=== PATIENT | female | born 1965 | race Caucasian/White ===

== ENCOUNTER 2017-06-25 11:17 | Inpatient (IN) | payer BC, OTHER ==
[~2017-06-25] VITALS: Ht 170.2 cm; Wt 108.9 kg
[2017-06-25 11:25] VITALS: BP_SYST 148
[2017-06-25] MEDS ORDERED: MECLIZINE HCL 25 MG TABLET (ANITVERT) PO ONE (11:45)
[2017-06-25] MEDS ORDERED: METOCLOPRAMIDE HCL 10 MG/2 ML VIAL IVP ONE (11:45)
[2017-06-25 11:52] LABS: BASOPHILS # (AUTO) 0.1 K/uL (0.0-0.2); BASOPHILS % (AUTO) 0.5 % (0.0-2.0); EOSINOPHILS # (AUTO) 0.1 K/uL (0.0-0.4); EOSINOPHILS % (AUTO) 0.8 % (0.0-4.0); HEMATOCRIT 38.5 % (36-48); HEMOGLOBIN 12.4 g/dL (12.0-16.0); LYMPHOCYTES # (AUTO) 1.6 K/uL (1.0-5.5); LYMPHOCYTES % (AUTO) 13.7 % (20.5-51.5); MEAN CORPUSCULAR HEMOGLOBIN 27 pg (27-31); MEAN CORPUSCULAR HGB CONC 32 % (32-36); MEAN CORPUSCULAR VOLUME 82 fL (79.0-98.0); MONOCYTES # (AUTO) 0.6 K/uL (0.0-1.0); MONOCYTES % (AUTO) 5.3 % (1.7-9.3); NEUTROPHILS # (AUTO) 9.6 K/uL (1.8-7.7); NEUTROPHILS % (AUTO) 79.7 % (40.0-70.0); PLATELET COUNT (AUTO) 305 K/uL (130-430); RED CELL DISTRIBUTION WIDTH 14.3 % (9.0-15.0); WHITE BLOOD COUNT (AUTO) 11.9 K/uL (4.8-10.8)
[2017-06-25 11:57] LABS: CALCIUM 9.2 mg/dL (8.4-11.0); CREATININE 0.84 mg/dL (0.55-1.30); POTASSIUM 3.8 mmol/L (3.5-5.1)
[2017-06-25 11:59] LABS: PROTHROMBIN TIME 10.1 SECS (9.5-12.5)
[2017-06-25 12:01] LABS: ALBUMIN 3.4 g/dL (3.4-4.8); TOTAL BILIRUBIN 0.8 mg/dL (0.0-1.0)
[2017-06-25] MEDS ORDERED: HYDR12.585 PO (13:49)
[2017-06-25] MEDS ORDERED: INSU10VI4 SUBCUT (13:49)
[2017-06-25] MEDS ORDERED: LOVA20TA2 PO (13:49)
[2017-06-25 15:17] VITALS: BP_SYST 138
[2017-06-25] MEDS ORDERED: POTASSIUM CHLORIDE 20 MEQ TAB.PRT.SR PO PRN (19:00)
[2017-06-25] MEDS ORDERED: MUPIROCIN 2% TOPICAL OINTMENT 22 GM NS PRN (19:00)
[2017-06-25] MEDS ORDERED: DOCUSATE SODIUM 100 MG CAPSULE PO PRN (19:00)
[2017-06-25] MEDS ORDERED: ONDANSETRON HCL 4 MG/2 ML VIAL IVP PRN (19:00)
[2017-06-25] MEDS ORDERED: ZOLPIDEM TARTRATE 5 MG TABLET PO PRN (19:00)
[2017-06-25] MEDS ORDERED: MAGNESIUM SULFATE 50 ML IV PRN (19:00)
[2017-06-25] MEDS ORDERED: LORazepam 2 MG/ML VIAL IVP PRN (19:00)
[2017-06-25 20:10] VITALS: BP_SYST 116
[2017-06-25] MEDS: HEPARIN SODIUM,PORCINE 5000 UNITS/ML VIAL SUBCUT SCH (20:56)
[2017-06-25] MEDS ORDERED: SIMVASTATIN 10 MG TABLET PO SCH (21:00)
[2017-06-25] MEDS: INSULIN REGULAR, HUMAN 100 UNITS/ML, 10 ML VIAL (novoLIN R) SUBCUT PRN (21:01)
[2017-06-26 00:06] VITALS: BP_SYST 124
[2017-06-26 07:12] LABS: BASOPHILS # (AUTO) 0.1 K/uL (0.0-0.2); BASOPHILS % (AUTO) 0.7 % (0.0-2.0); EOSINOPHILS # (AUTO) 0.2 K/uL (0.0-0.4); EOSINOPHILS % (AUTO) 2.3 % (0.0-4.0); HEMATOCRIT 34.3 % (36-48); HEMOGLOBIN 11.5 g/dL (12.0-16.0); LYMPHOCYTES # (AUTO) 2.5 K/uL (1.0-5.5); LYMPHOCYTES % (AUTO) 31.4 % (20.5-51.5); MEAN CORPUSCULAR HEMOGLOBIN 27 pg (27-31); MEAN CORPUSCULAR HGB CONC 34 % (32-36); MEAN CORPUSCULAR VOLUME 81 fL (79.0-98.0); MONOCYTES # (AUTO) 0.5 K/uL (0.0-1.0); MONOCYTES % (AUTO) 6.6 % (1.7-9.3); NEUTROPHILS # (AUTO) 4.6 K/uL (1.8-7.7); PLATELET COUNT (AUTO) 261 K/uL (130-430); RED BLOOD CELL COUNT(AUTO) 4.22 MIL/uL (4.2-6.2); WHITE BLOOD COUNT (AUTO) 7.9 K/uL (4.8-10.8)
[2017-06-26] MEDS ORDERED: MECLIZINE HCL 25 MG TABLET (ANITVERT) PO PRN (07:15)
[2017-06-26 07:29] LABS: CALCIUM 8.8 mg/dL (8.4-11.0); CREATININE 0.65 mg/dL (0.55-1.30); POTASSIUM 3.4 mmol/L (3.5-5.1)
[2017-06-26 08:00] VITALS: BP_SYST 107
[2017-06-26] MEDS: HEPARIN SODIUM,PORCINE 5000 UNITS/ML VIAL SUBCUT SCH (08:34)
[2017-06-26] MEDS ORDERED: PANTOPRAZOLE SODIUM 40 MG TAB PO SCH (09:00)
[2017-06-26] MEDS: INSULIN REGULAR, HUMAN 100 UNITS/ML, 10 ML VIAL (novoLIN R) SUBCUT PRN (11:17)
[2017-06-26 12:00] VITALS: BP_SYST 98
[2017-06-26] MEDS ORDERED: IBUPROFEN 400 MG TABLET PO PRN (12:00)
[2017-06-26 14:50] VITALS: BP_SYST 106
[2017-06-26 16:00] VITALS: BP_SYST 106
[2017-06-26] MEDS ORDERED: LOVASTATIN 20 MG TABLET PO SCH (18:00)
== END 2017-06-26 16:55 | disposition home or self-care (01) | DRG 392 ==
LOC: SED 11:17 → STU 14:58
PROVIDERS: ADMIT Internal Medicine; ATTEND General Practice
DX: K21.9 Gastro-esophageal reflux disease without esophagitis (principal); E11.43 Type 2 diabetes mellitus with diabetic autonomic (poly)neuropathy; E87.1 Hypo-osmolality and hyponatremia; E11.65 Type 2 diabetes mellitus with hyperglycemia; E66.9 Obesity, unspecified; E78.5 Hyperlipidemia, unspecified; F17.200 Nicotine dependence, unspecified, uncomplicated; G43.909 Migraine, unspecified, not intractable, without status migrainosus; I10 Essential (primary) hypertension; H81.10 Benign paroxysmal vertigo, unspecified ear; Z79.4 Long term (current) use of insulin; Z90.49 Acquired absence of other specified parts of digestive tract; Z98.84 Bariatric surgery status; Z88.5 Allergy status to narcotic agent; Z68.32 Body mass index [BMI] 32.0-32.9, adult
CPT/HCPCS: 36415; 70450-TC; 71045; 80048; 80053; 81025; 82550-TC; 82962; 83036; 83735-TC; 83880; 84484; 85025; 85610-TC; 85730-TC; 93005; 93306; 93880; 96374; 99285; J1644; J1815; J2765; J8597

== ENCOUNTER 2017-08-22 10:38 | Emergency (ER) | payer BC ==
[~2017-08-22] VITALS: Ht 167.6 cm; Wt 108.9 kg
[~2017-08-22 10:38] MED LIST: HYDR12.585 PO; INSU10VI4 SUBCUT; LOVA20TA2 PO
--- NOTE | 2017-08-22 11:00 | NUR ---
Pt c/o SOB x 1 day with non-radiating chest pain with non-productive cough. Pt states that she was unable to sleep r/t coughing.
--- NOTE | 2017-08-22 11:00 | NUR ---
Placed in room 02 . Placed on traffic monitor specialist, blood pressure machine and pulse oximeter. To gown for exam. Side rails up. Report given to Clement SNELL
[2017-08-22 11:05] VITALS: BP_SYST 139
--- NOTE | 2017-08-22 11:07 | NUR ---
Dr. Aguillon at bedside.
--- NOTE | 2017-08-22 11:12 | NUR ---
# 20 gauge angiocath placed to RAC. Use of asceptic technique. Opsite placed over site. Blood return noted. Blood for lab drawn from site. Flushed with 10 cc of normal saline. No evidence of infiltration noted. Patient tolerated well.
[2017-08-22] MEDS ORDERED: NACL 0.9% 1,000 ML IV ONE ×2 (11:15→12:30)
[2017-08-22 11:34] LABS: BASOPHILS % (AUTO) 0.3 % (0.0-2.0); EOSINOPHILS % (AUTO) 0.1 % (0.0-4.0); HEMATOCRIT 38.6 % (36-48); HEMOGLOBIN 12.5 g/dL (12.0-16.0); LYMPHOCYTES # (AUTO) 0.4 K/uL (1.0-5.5); MEAN CORPUSCULAR HEMOGLOBIN 26 pg (27-31); MEAN CORPUSCULAR HGB CONC 32 % (32-36); MEAN CORPUSCULAR VOLUME 81 fL (79.0-98.0); MONOCYTES # (AUTO) 0.5 K/uL (0.0-1.0); MONOCYTES % (AUTO) 5.8 % (1.7-9.3); NEUTROPHILS # (AUTO) 8.4 K/uL (1.8-7.7); NEUTROPHILS % (AUTO) 89.8 % (40.0-70.0); PLATELET COUNT (AUTO) 274 K/uL (130-430); RED BLOOD CELL COUNT(AUTO) 4.76 MIL/uL (4.2-6.2); RED CELL DISTRIBUTION WIDTH 14.4 % (9.0-15.0); WHITE BLOOD COUNT (AUTO) 9.3 K/uL (4.8-10.8)
--- NOTE | 2017-08-22 11:40 | NUR ---
Respiratory at bedside
[2017-08-22 11:45] LABS: CALCIUM 8.3 mg/dL (8.4-11.0); CREATININE 0.95 mg/dL (0.55-1.30); POTASSIUM 3.8 mmol/L (3.5-5.1)
[2017-08-22] MEDS ORDERED: IPRATROPIUM/ALBUTEROL SULFATE 3 ML AMPUL.NEB INH ONE (11:45)
[2017-08-22 11:49] LABS: ALBUMIN 3.4 g/dL (3.4-4.8); TOTAL BILIRUBIN 1.4 mg/dL (0.0-1.0)
--- NOTE | 2017-08-22 12:40 | NUR ---
Respiratory at bedside to draw blood gas
--- NOTE | 2017-08-22 12:58 | NUR ---
ER Dr. Linares at bedside updating patient.
[2017-08-22 13:08] VITALS: BP_SYST 125
--- NOTE | 2017-08-22 13:08 | NUR ---
Patient given written and verbal discharge instructions and verbalizes understanding. ER MD discussed with patient the results and treatment provided. Patient in stable condition. ID arm band removed. IV catheter removed intact and dressing applied, no active bleeding. Rx of Azithromycin, Promethizine DM, Prednisone given. Patient educated on pain management and to follow up with PMD. Pain Scale 2/10. Opportunity for questions provided and answered. Medication side effect fact sheet provided.
== END 2017-08-22 13:08 | disposition home or self-care (01) ==
LOC: SED 10:38
DX: J18.9 Pneumonia, unspecified organism (principal); I10 Essential (primary) hypertension
CPT/HCPCS: 36415; 36600; 71045; 80053; 82803; 83605; 84484; 85025; 87040; 93005; 94640; 99285; J7030; J7620

== ENCOUNTER 2019-04-22 20:04 | Emergency (ER) | payer BC ==
[~2019-04-22] VITALS: Ht 167.6 cm; Wt 106.6 kg
[2019-04-22 20:23] VITALS: BP_SYST 106
--- NOTE | 2019-04-22 22:02 | NUR ---
Pt placed to ER chair 1. Pt c/o pain to RHA that radiates to right shoulder s/p injuring her right wrist 1 month ago. No swelling or deformity noted. Pt states that her granddaughter has a deformity on one of her feet, and has a titanium bar in place across both feet. Upon changing her diaper, pt states that the bar fell and hit her right wrist. Since then she has been unable to drive or work efficiently and unable to move right thumb.
--- NOTE | 2019-04-22 22:30 | NUR ---
Dr. Krishna assessing pt.
--- NOTE | 2019-04-22 23:30 | NUR ---
No needs verbalized at this time.
[2019-04-22] MEDS ORDERED: IBUPROFEN 800 MG TABLET PO ONE (23:45)
[2019-04-23 00:40] VITALS: BP_SYST 112
--- NOTE | 2019-04-23 00:40 | NUR ---
Patient given written and verbal discharge instructions and verbalizes understanding. ER MD discussed with patient the results and treatment provided. Patient in stable condition. ID arm band removed. Rx of Motrin given. Patient educated on pain management and to follow up with PMD. Pain Scale 3/10. Opportunity for questions provided and answered. Medication side effect fact sheet provided.
== END 2019-04-23 00:40 | disposition home or self-care (01) ==
LOC: SED 20:04
DX: M79.641 Pain in right hand (principal); M25.531 Pain in right wrist; E11.9 Type 2 diabetes mellitus without complications; I10 Essential (primary) hypertension; E78.00 Pure hypercholesterolemia, unspecified; Z79.4 Long term (current) use of insulin; Z88.6 Allergy status to analgesic agent; Z88.5 Allergy status to narcotic agent; Z88.8 Allergy status to other drugs, medicaments and biological substances
CPT/HCPCS: 99283